=== PATIENT | male | born 1940 | race Caucasian/White ===

== ENCOUNTER 2023-01-25 10:02 | Emergency (ER) | payer MEDICARE, BC ==
[2023-01-25] MEDS ORDERED: Take Home: Cefuroxime 250 MG Tab, 2 Tab Pack PO ONE (10:28)
[2023-01-25] MEDS ORDERED: Take Home: Cefuroxime 250 MG Tab, 2 Tab Pack ONE (10:35)
[2023-01-25 17:51] VITALS: BP 157/73; PULSE 94
== END 2023-01-25 10:39 | disposition home or self-care (01) ==
LOC: VM.ED 10:02
DX: J01.90 Acute sinusitis, unspecified (principal); I10 Essential (primary) hypertension; Z87.891 Personal history of nicotine dependence; Z79.82 Long term (current) use of aspirin; Z91.041 Radiographic dye allergy status; Z91.013 Allergy to seafood
CPT/HCPCS: 99283; A9270-GY